=== PATIENT | female | born 1935 ===

== ENCOUNTER → 2023-05-06 12:32 | Outpatient (REF) | payer MEDICARE, OTHER, SELFPAY | LOC: WOUND 12:32 | PROVIDERS: ATTENDING PHYSICIAN Surgery; REFERRING PHYSICIAN Internal Medicine | DX: I87.312 Chronic venous hypertension (idiopathic) with ulcer of left lower extremity (principal); L97.821 Non-pressure chronic ulcer of other part of left lower leg limited to breakdown of skin; L97.221 Non-pressure chronic ulcer of left calf limited to breakdown of skin; L97.321 Non-pressure chronic ulcer of left ankle limited to breakdown of skin; E11.9 Type 2 diabetes mellitus without complications; M14.672 Charcot's joint, left ankle and foot; M14.671 Charcot's joint, right ankle and foot; I87.2 Venous insufficiency (chronic) (peripheral) | CPT/HCPCS: 97597; 97598; 99213 ==

== ENCOUNTER → 2023-05-13 13:04 | Outpatient (REF) | payer MEDICARE, OTHER, SELFPAY | LOC: WOUND 13:04 | PROVIDERS: ATTENDING PHYSICIAN Surgery | DX: I87.312 Chronic venous hypertension (idiopathic) with ulcer of left lower extremity (principal); L97.821 Non-pressure chronic ulcer of other part of left lower leg limited to breakdown of skin; L97.221 Non-pressure chronic ulcer of left calf limited to breakdown of skin; L97.321 Non-pressure chronic ulcer of left ankle limited to breakdown of skin; E11.9 Type 2 diabetes mellitus without complications; M14.672 Charcot's joint, left ankle and foot; M14.671 Charcot's joint, right ankle and foot; I87.2 Venous insufficiency (chronic) (peripheral) | CPT/HCPCS: 97597; 97598 ==